=== PATIENT | female | born 1965 | race American Indian/Alaskan Native ===

== ENCOUNTER 2018-03-07 06:23 | Emergency (ER) | payer OTHER ==
[2018-03-07 07:16] LABS: Bacteria,Urine 1+ /HPF (Negative); Mucus,Urine 2+ /HPF
[2018-03-07 07:20] LABS: Basophils % (Auto) 0.2 % (0.0-1.8); Eosinophils % (Auto) 0.1 % (0.0-4.3); Hematocrit 38.9 % (30.3-42.9); Hemoglobin 12.5 gm/dl (10.1-14.3); Lymphocytes # (Auto) 1.5 K/mm3 (1.2-5.4); Lymphocytes % (Auto) 10.7 % (13.4-35.0); Mean Corpuscular HGB Conc 32 % (30-34); Mean Corpuscular Volume 81 fl (79-97); Monocytes # (Auto) 1.6 K/mm3 (0.0-0.8); Monocytes % (Auto) 11.1 % (0.0-7.3); Platelet Count 222 K/mm3 (140-440); Red Blood Count 4.81 M/mm3 (3.65-5.03); Red Cell Distribution Width 14.7 % (13.2-15.2)
[2018-03-07 07:35] LABS: Alanine Aminotransferase 23 units/L (7-56); Albumin 4.6 g/dL (3.9-5); BUN/Creatinine Ratio 20; Blood Urea Nitrogen 10 mg/dL (7-17); Calcium 9.5 mg/dL (8.4-10.2); Hemolysis Index 1
[2018-03-07 07:37] LABS: Color,Urine Straw (Yellow)
[2018-03-07 07:38] LABS: Bilirubin,Urine Negative (Negative)
[2018-03-07 07:39] LABS: Blood,Urine Trace (Negative)
--- NOTE | 2018-03-07 07:39 | Emergency Department Report ---
ED Abdominal Pain HPI - General Chief Complaint: Abdominal Pain Stated Complaint: PELVIC/LOWER ABDOMINAL PAIN Time Seen by Provider: 03/07/18 07:36 Source: patient Mode of arrival: Ambulatory Limitations: No Limitations - History of Present Illness Initial Comments: Patient is a 52-year-old female that presents emergency room with complaints of lower abdominal pain 3 days. Patient states that she's not had a bowel movement for 3 days. Patient states that she took a suppository of unknown medication and did not help. Patient denies nausea vomiting a patient states the abdominal pain is in her right lower quadrant. Patient states she took tramadol and that helped. Patient states the pain is a 10 out of 10. Patient states pain is worsening. They say stated nonradiating. MD Complaint: abdominal pain -: Sudden Location: RLQ Radiation: none Migration to: no migration Severity: severe Severity scale (0 -10): 10 Quality: stabbing Improves With: rest Worsens With: movement Associated Symptoms: nausea, constipation. denies: vomiting, diarrhea, fever, chills, dysuria, hematemesis, hematochezia, melena, hematuria, anorexia, syncope - Related Data LMP (females 10-50): other (oskar) Previous Rx's Medication Instructions Recorded Last Taken Type Ciprofloxacin HCl [Cipro] 500 mg PO BID 10 Days #20 tablet 03/07/18 Unknown Rx Docusate Sodium [Colace Clear] 100 mg PO TID PRN #30 capsule 03/07/18 Unknown Rx HYDROcodone/ACETAMINOPHEN [[place] 1 each PO Q4HR PRN #12 tablet 03/07/18 Unknown Rx 5-325 Tablet] Allergies Allergy/AdvReac Type Severity Reaction Status Date / Time No Known Allergies Allergy Unverified 12/17/14 10:02 ED Review of Systems ROS: Stated complaint: PELVIC/LOWER ABDOMINAL PAIN Other details as noted in HPI Constitutional: denies: chills, fever Eyes: denies: eye pain, eye discharge, vision change ENT: denies: ear pain, throat pain Respiratory: denies: cough, shortness of breath, wheezing Cardiovascular: denies: chest pain, palpitations Endocrine: no symptoms reported Gastrointestinal: abdominal pain, nausea, constipation. denies: diarrhea Genitourinary: denies: urgency, dysuria, discharge Musculoskeletal: denies: back pain, joint swelling, arthralgia Skin: denies: rash, lesions Neurological: denies: headache, weakness, paresthesias Psychiatric: denies: anxiety, depression Hematological/Lymphatic: denies: easy bleeding, easy bruising ED Past Medical Hx - Past Medical History Previous Medical History?: Yes Hx Hypertension: Yes - Surgical History Past Surgical History?: Yes Additional Surgical History: Hysterectomy - Family History Family history: no significant - Social History Smoking Status: Never Smoker Substance Use Type: Alcohol - Medications Home Medications: Home Medications Medication Instructions Recorded Confirmed Last Taken Type Ciprofloxacin HCl [Cipro] 500 mg PO BID 10 Days #20 tablet 03/07/18 Unknown Rx Docusate Sodium [Colace Clear] 100 mg PO TID PRN #30 capsule 03/07/18 Unknown Rx HYDROcodone/ACETAMINOPHEN [[place] 1 each PO Q4HR PRN #12 tablet 03/07/18 Unknown Rx 5-325 Tablet] ED Physical Exam - General Limitations: No Limitations General appearance: alert, in no apparent distress - Head Head exam: Present: atraumatic, normocephalic - Eye Eye exam: Present: normal appearance - ENT ENT exam: Present: mucous membranes moist - Neck Neck exam: Present: normal inspection - Respiratory Respiratory exam: Present: normal lung sounds bilaterally. Absent: respiratory distress - Cardiovascular Cardiovascular Exam: Present: regular rate, normal rhythm. Absent: systolic mu rmur, diastolic murmur, rubs, gallop - GI/Abdominal GI/Abdominal exam: Present: soft, tenderness (rlq ttp), normal bowel sounds - Extremities Exam Extremities exam: Present: normal inspection - Back Exam Back exam: Present: normal inspection - Neurological Exam Neurological exam: Present: alert, oriented X3 - Psychiatric Psychiatric exam: Present: normal affect, normal mood - Skin Skin exam: Present: warm, dry, intact, normal color. Absent: rash ED Course Vital Signs 03/07/18 03/07/18 03/07/18 06:29 08:23 09:36 Temperature 98.9 F Pulse Rate 112 H 88 Respiratory 16 22 20 Rate Blood Pressure 130/81 Blood Pressure 100/61 [Right] O2 Sat by Pulse 100 98 Oximetry 03/07/18 12:27 Temperature 98.1 F Pulse Rate 92 H Respiratory 20 Rate Blood Pressure Blood Pressure 103/63 [Right] O2 Sat by Pulse 98 Oximetry - Reevaluation(s) Reevaluation #1: Discussed all results with patient. Patient stable for discharge. Patient agrees with discharge. Patient we discharged home with antibiotics and stool softeners. Patient given discharge instructions. Patient given return to ER instructions. Patient voiced understanding of instructions. 03/07/18 12:48 ED Medical Decision Making - Lab Data Result diagrams: 03/07/18 07:11 03/07/18 07:11 - Radiology Data Radiology results: report reviewed CT ABDOMEN AND PELVIS WITH CONTRAST INDICATION: Abdominal pain. No bowel movement. COMPARISON: None similar. FINDINGS: Abdomen and pelvis CT performed following oral contrast and intravenous administration of 100 cc of Omnipaque 300. LUNG BASES: Right hemidiaphragm approximately 4 cm higher than the left. Borderline cardiomegaly. Slight bibasilar dependent atelectasis posteriorly. Nonspecific distal esophageal wall prominence/thickening, not excluded for gastroesophageal reflux and/or approximately 3 cm hiatal hernia, amongst others. ABDOMEN: Mild diffuse fatty hepatic infiltration with left hepatic lobe tip wrapping around the spleen in the left upper quadrant. Right hepatic lobe 16.6 cm in midclavicular length. Otherwise unremarkable liver, spleen, gallbladder, pancreas, adrenals, slightly tortuous though nonaneurysmal abdominal aorta with few atherosclerotic calcifications, IVC and kidneys. No ascites or size significant adenopathy. Opacified GI tract nonobstructive. Proximal ascending colon diverticulum posteriorly as on axial image 91. Few distal descending colon diverticuli also noted. PELVIS: Uterus surgically absent. Numerous small pelvic phleboliths. Grossly unremarkable urinary bladder and the rectosigmoid. No free fluid or significant adenopathy. Multilevel spinal degenerative changes as spurring. Mild levoscoliosis apex about L2-L3 with some asymmetric disc narrowing also noted. CONCLUSION: 1. No acute CT abnormality with mild diverticulosis incidentally noted. No significant colonic stool burden or evidence of obstruction. 2. Various other incidental findings as at the imaged lung bases, fatty liver, hysterectomy and multilevel spinal degenerative changes, amongst others, as above. - Medical Decision Making Patient is a 52-year-old female presents to emergency room with lower abdominal pain. Patient's CT was negative. Patient's only clinical findings elevated white count and UTI. Patient given antibiotics. Patient's pain improved while in ER. Patient was discharged home with pain medications and antibiotics and stool softeners. - Differential Diagnosis constipation. Diverticulitis. Appi. Abdominal pain. UTI. Critical care attestation.: If time is entered above; I have spent that time in minutes in the direct care of this critically ill patient, excluding procedure time. ED Disposition Clinical Impression: Abdominal pain Qualifiers: Abdominal location: right lower quadrant Qualified Code(s): R10.31 - Right lower quadrant pain UTI (urinary tract infection) Qualifiers: Urinary tract infection type: acute cystitis Hematuria presence: with hematuria Qualified Code(s): N30.01 - Acute cystitis with hematuria Constipation Qualifiers: Constipation type: unspecified constipation type Qualified Code(s): K59.00 - Constipation, unspecified Disposition: TO HOME OR SELFCARE Is pt being admited?: No Does the pt Need Aspirin: No Condition: Stable Instructions: Constipation (ED), Urinary Tract Infection in Men (ED), High Fiber Diet (ED), Abdominal Pain (ED) Additional Instructions: Patient to follow up with primary care in 2-3 days. Patient to return to the ER if condition worsens. Patient to increase water. Patient to rest. Patient denies upper diet. Patient take meds as directed. Prescriptions: Ciprofloxacin HCl [Cipro] 500 mg PO BID 10 Days #20 tablet Docusate Sodium [Colace Clear] 100 mg PO TID PRN #30 capsule PRN Reason: Constipation HYDROcodone/ACETAMINOPHEN [[place] 5-325 Tablet] 1 each PO Q4HR PRN #12 tablet PRN Reason: Pain , Severe (7-10) Referrals: ROSIE MERRILL MD [Primary Care Provider] - 2-3 Days Forms: Work/School Release Form(ED) Time of Disposition: 12:56
[2018-03-07 07:40] LABS: Ictotest,Urine Negative (Negative); Urobilinogen,Urine < 2.0 mg/dL (<2.0)
[2018-03-07] MEDS ORDERED: DILAUDID IV ONE ×2 (08:12→12:16)
[2018-03-07] MEDS ORDERED: ROCEPHIN/NS 2 GM/100 ML 2 GM/100 ML BAG IV ONE (11:00)
--- NOTE | 2018-03-07 11:41 | Cat Scan Report ---
CT ABDOMEN AND PELVIS WITH CONTRAST INDICATION: Abdominal pain. No bowel movement. COMPARISON: None similar. FINDINGS: Abdomen and pelvis CT performed following oral contrast and intravenous administration of 100 cc of Omnipaque 300. LUNG BASES: Right hemidiaphragm approximately 4 cm higher than the left. Borderline cardiomegaly. Slight bibasilar dependent atelectasis posteriorly. Nonspecific distal esophageal wall prominence/thickening, not excluded for gastroesophageal reflux and/or approximately 3 cm hiatal hernia, amongst others. ABDOMEN: Mild diffuse fatty hepatic infiltration with left hepatic lobe tip wrapping around the spleen in the left upper quadrant. Right hepatic lobe 16.6 cm in midclavicular length. Otherwise unremarkable liver, spleen, gallbladder, pancreas, adrenals, slightly tortuous though nonaneurysmal abdominal aorta with few atherosclerotic calcifications, IVC and kidneys. No ascites or size significant adenopathy. Opacified GI tract nonobstructive. Proximal ascending colon diverticulum posteriorly as on axial image 91. Few distal descending colon diverticuli also noted. PELVIS: Uterus surgically absent. Numerous small pelvic phleboliths. Grossly unremarkable urinary bladder and the rectosigmoid. No free fluid or significant adenopathy. Multilevel spinal degenerative changes as spurring. Mild levoscoliosis apex about L2-L3 with some asymmetric disc narrowing also noted. CONCLUSION: 1. No acute CT abnormality with mild diverticulosis incidentally noted. No significant colonic stool burden or evidence of obstruction. 2. Various other incidental findings as at the imaged lung bases, fatty liver, hysterectomy and multilevel spinal degenerative changes, amongst others, as above. Thank you for the opportunity to participate in this patient's care.
[2018-03-07 12:28] VITALS: BP 103/63
== END 2018-03-07 13:42 | disposition home or self-care (01) ==
LOC: ED 06:23
DX: N30.01 Acute cystitis with hematuria (principal); K59.00 Constipation, unspecified; I10 Essential (primary) hypertension
CPT/HCPCS: 36415; 74177; 80053; 81001; 85025; 96365; 96375; 96376; 99284; J0696; J1170; Q9967

== ENCOUNTER 2021-01-04 22:50 | Emergency (ER) | payer SELFPAY ==
[2021-01-04] MEDS ORDERED: CETIRIZINE 10 MG TAB PO ONE ×2 (23:04→23:50)
[2021-01-04] MEDS ORDERED: predniSONE 20 MG TAB PO ONE (23:04)
--- NOTE | 2021-01-04 23:14 | Emergency Department Report ---
ED Allergic Reaction HPI - General Chief complaint: Allergic Reaction Stated complaint: ALLERGIC REACTION Time Seen by Provider: 01/04/21 22:57 Source: patient Mode of arrival: Ambulatory Limitations: No Limitations - History of Present Illness Initial Comments: Chief complaint: Lip swelling HPI: This is a 55-year-old female with history of hypertension who has had intermittent lip swelling over the last several weeks. Her primary physician recently increased her dose of Diovan for Sheila. No difficulty with swallowing shortness of breath. No syncope. No vomiting. No previous allergic reaction. No food allergies. MD Complaint: other (Lip swelling) -: Gradual Exposure: medication Symptoms: lip swelling Severity: mild Treatment Prior to Arrival: benadryl Previous Allergy History: none - Related Data Previous Rx's Medication Instructions Recorded Last Taken Type Ciprofloxacin HCl [Cipro] 500 mg PO BID 10 Days #20 tablet 03/07/18 Unknown Rx Docusate Sodium [Colace Clear] 100 mg PO TID PRN #30 capsule 03/07/18 Unknown Rx HYDROcodone/ACETAMINOPHEN [[place] 1 each PO Q4HR PRN #12 tablet 03/07/18 Unknown Rx 5-325 Tablet] Prednisone [predniSONE 10 mg 10 mg PO .TAPER #1 tab.ds.pk 01/04/21 Unknown Rx (6-Day Pack, 21 Tabs)] amLODIPine 5 mg PO DAILY 30 Days #30 tab 01/04/21 Unknown Rx Allergies Allergy/AdvReac Type Severity Reaction Status Date / Time No Known Allergies Allergy Verified 01/04/21 22:53 ED Review of Systems ROS: Stated complaint: ALLERGIC REACTION Other details as noted in HPI Comment: All other systems reviewed and negative Constitutional: denies: chills, fever, malaise Respiratory: denies: cough, shortness of breath Cardiovascular: denies: chest pain Gastrointestinal: denies: abdominal pain Skin: denies: rash, lesions ED Past Medical Hx - Past Medical History Previous Medical History?: Yes Hx Hypertension: Yes - Surgical History Past Surgical History?: Yes Additional Surgical History: Hysterectomy - Family History Family history: hypertension - Social History Smoking Status: Never Smoker Substance Use Type: Alcohol - Medications Home Medications: Home Medications Medication Instructions Recorded Confirmed Last Taken Type Ciprofloxacin HCl [Cipro] 500 mg PO BID 10 Days #20 tablet 03/07/18 Unknown Rx Docusate Sodium [Colace Clear] 100 mg PO TID PRN #30 capsule 03/07/18 Unknown Rx HYDROcodone/ACETAMINOPHEN [[place] 1 each PO Q4HR PRN #12 tablet 03/07/18 Unknown Rx 5-325 Tablet] Prednisone [predniSONE 10 mg 10 mg PO .TAPER #1 tab.ds.pk 01/04/21 Unknown Rx (6-Day Pack, 21 Tabs)] amLODIPine 5 mg PO DAILY 30 Days #30 tab 01/04/21 Unknown Rx ED Physical Exam - General Limitations: No Limitations General appearance: alert, in no apparent distress - Head Head exam: Present: atraumatic, normocephalic, other (Mild lip edema) - Eye Eye exam: Present: normal appearance - ENT ENT exam: Present: mucous membranes moist, other (No oropharyngeal swelling, normal tongue size normal oropharyngeal exam) - Neck Neck exam: Present: normal inspection - Respiratory Respiratory exam: Absent: respiratory distress, wheezes, rales, rhonchi - Cardiovascular Cardiovascular Exam: Absent: systolic murmur, diastolic murmur, rubs, gallop - GI/Abdominal GI/Abdominal exam: Present: soft, normal bowel sounds. Absent: distended, tenderness, guarding, rebound - Extremities Exam Extremities exam: Present: normal inspection - Back Exam Back exam: Present: normal inspection - Neurological Exam Neurological exam: Present: alert, oriented X3 - Psychiatric Psychiatric exam: Present: normal affect, normal mood - Skin Skin exam: Present: warm, dry, intact, normal color. Absent: rash ED Course Vital Signs 01/04/21 01/04/21 01/04/21 22:51 22:57 23:06 Pulse Rate 54 L 83 Respiratory 19 Rate Blood Pressure 137/73 O2 Sat by Pulse 99 99 Oximetry ED Medical Decision Making - Medical Decision Making No angioedema due to ARB valsartan. I have recommended discontinuation of ARB valsartan. I prescribed amlodipine. Referred to primary physician. Critical care attestation.: If time is entered above; I have spent that time in minutes in the direct care of this critically ill patient, excluding procedure time. ED Disposition Clinical Impression: Allergic reaction caused by a drug, Angioedema Disposition: HOME / SELF CARE / HOMELESS Is pt being admited?: No Does the pt Need Aspirin: No Condition: Stable Instructions: Angioedema, [id number] Additional Instructions: Please stop taking your medication Diovan also known as valsartan Prescriptions: amLODIPine 5 mg PO DAILY 30 Days #30 tab Prednisone [predniSONE 10 mg (6-Day Pack, 21 Tabs)] 10 mg PO .TAPER #1 tab.ds.pk Referrals: PRIMARY CARE, [Referring] - 3-5 Days
[2021-01-04 23:55] VITALS: BP 133/73
== END 2021-01-05 | disposition home or self-care (01) ==
LOC: ED 22:50
DX: R22.0 Localized swelling, mass and lump, head (principal); T46.5X5A Adverse effect of other antihypertensive drugs, initial encounter; Y92.89 Other specified places as the place of occurrence of the external cause; T78.3XXA Angioneurotic edema, initial encounter
CPT/HCPCS: 99282; J7512